=== PATIENT | male | born 1980 | race African-American/Black ===

== ENCOUNTER 2016-09-15 14:23 | Emergency (ER) | payer SELFPAY ==
[~2016-09-15] VITALS: Ht 177.8 cm; Wt 90.7 kg
[2016-09-15 15:06] VITALS: BP 118/75
--- NOTE | 2016-09-15 15:21 | Diagnostic Imaging Report ---
Indication: Pain Findings: 3 views of the right wrist were obtained. No acute fractures, malalignment, erosions or periostitis are identified. Bone mineralization is within normal limits. Soft tissues are unremarkable. Impression: Negative examination of the right wrist.
[2016-09-15] MEDS ORDERED: IBUPROFEN600 MG ORAL (15:28)
[2016-09-15] MEDS ORDERED: Ipratropium 0.02% Inh Soln 2.5ml UD HHN SCH (15:45)
[2016-09-15] MEDS ORDERED: Albuterol ud Inhalation HHN SCH (15:45)
[2016-09-15 15:54] VITALS: BP 118/75
--- NOTE | 2016-09-15 22:02 | Emergency Room Report ---
History of Present Illness General Chief Complaint: Pain Source: Patient Present Illness HPI The patient is a 36-year-old male presenting for right wrist pain which began today. The patient states that he fell onto his right hand and is now experiencing an 8/10 dull ache. Pain does not radiate. It is worse with wrist movement and touch. he denies previous injury to this area. He denies numbness or tingling. He denies any other symptoms Allergies: Coded Allergies: No Known Allergies (Unverified , 09/15/16) Patient History Past Medical History: see triage record Pertinent Family History: none Reviewed Nursing Documentation: PMH: Agreed, PSxH: Agreed Nursing Documentation-PMH Past Medical History: No Stated History Review of Systems All Other Systems: negative except mentioned in HPI Physical Exam Vital Signs Date Time Temp Pulse Resp B/P Pulse Ox O2 Delivery O2 Flow Rate FiO2 09/15/16 14:28 97.7 69 14 116/78 98 Room Air Sp02 EP Interpretation: reviewed, normal General Appearance: no apparent distress, alert, GCS 15, non-toxic Head: normocephalic, atraumatic Eyes: bilateral eye PERRL, bilateral eye normal inspection ENT: hearing grossly normal, normal pharynx, no angioedema, normal voice Musculoskeletal: normal inspection, normal range of motion, tender - TTP over the dorsal mid wrist Neurologic: alert, oriented x3, responsive, motor strength/tone normal, sensory intact, speech normal Psychiatric: judgement/insight normal, memory normal, mood/affect normal, no suicidal/homicidal ideation Skin: normal color, no rash, warm/dry, well hydrated Lymphatic: no adenopathy Medical Decision Making PA Attestation Dr. Rubio is my supervising physician. Patient management was discussed with my supervising physician Diagnostic Impression: Primary Impression: Contusion of wrist, right ER Course The patient is a 36-year-old male presenting for right wrist pain Ddx considered include but not limited to sprain/strain, fracture, contusion PE: vitals WNL. NAD R wrist: TTP over the dorsal joint line. Full AROM. No edema. No ecchymosis. The patient is given Motrin for pain. X-ray of the wrist is unremarkable To be discharged home with RICE instructions and a prescription for Motrin. ER precautions given Other X-Ray Diagnostic Results Other X-Ray Diagnostic Results : X-Ray Ordered: R wrist Date: September 15, 2016 EP Interpretation: Yes Findings: no fractures, no dislocation, no soft tissue swelling Number of Views: 3 PA Scribe Text I am acting as scribe for my supervising physician. My supervising physician's interpretation of the R wrist xrays are there are no fractures, dislocations or soft tissue swelling. Last Vital Signs Date Time Temp Pulse Resp B/P Pulse Ox O2 Delivery O2 Flow Rate FiO2 09/15/16 15:54 97.7 86 16 118/75 98 Room Air Disposition: HOME, SELF-CARE Condition: Improved Scripts Ibuprofen* (MOTRIN*) 600 Mg Tablet 600 MG ORAL Q8H Y for For Pain, #30 TAB 0 Refills Prov: MAU BLANC 09/15/16 Patient Instructions: Hand Contusion, [id number] Additional Instructions: I discussed my findings with the patient. All questions and concerns have been answered. Treatment and medication compliance have been addressed. I advised the patient that they need to follow up with PMD in 3-5 days. Return to ED if pain remains or worsens, numbness or tingling occurs, new rash is noticed, fever is noticed, or if needed for any reason. Patient verbalized understanding of discharge instructions. MAU BLANC September 15, 2016 22:02
== END 2016-09-15 16:01 | disposition home or self-care (01) ==
LOC: EMR 14:40
DX: S60.211A Contusion of right wrist, initial encounter (principal); W19.XXXA Unspecified fall, initial encounter; Y92.89 Other specified places as the place of occurrence of the external cause
CPT/HCPCS: 99283

== ENCOUNTER 2016-10-21 13:53 | Emergency (ER) | payer SELFPAY ==
[~2016-10-21] VITALS: Ht 175.3 cm; Wt 95.3 kg
[~2016-10-21 13:53] MED LIST: IBUPROFEN600 MG ORAL
[2016-10-21 14:11] VITALS: BP 143/86
--- NOTE | 2016-10-21 14:52 | Emergency Room Report ---
History of Present Illness General Chief Complaint: Pain Source: Patient Present Illness HPI 36 YO male presents emergency department complaining of 8/10 in severity pain in the right wrist that he describes as electrical, shooting sensation it radiates up into the right forearm, and is intermittent. Pain is exacerbated with movement of the wrist, denies tenderness. Patient states he sustained injury to the right wrist approximately one month ago and had x-rays which did not show fracture. Patient states his initial swelling and injuries improves with Motrin however he continues to have intermittent shooting electrical sensations of the right forearm. 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 Patient denies erythema, swelling or bruising. Patient denies new trauma. He reports intermittent numbness and tingling in the third and fourth digits. Denies numbness tingling or loss of sensation or gross motor movements of the extremities, incontinence of bowel or bladder. Denies CP, Palpitations, LOC, AMS, dizziness, Changes in Vision, Sensation, or a sudden severe headache. Allergies: Coded Allergies: No Known Allergies (Unverified , 09/15/16) Patient History Past Medical History: see triage record Past Surgical History: none Pertinent Family History: none Reviewed Nursing Documentation: PMH: Agreed, PSxH: Agreed Nursing Documentation-PMH Past Medical History: No Stated History Review of Systems All Other Systems: negative except mentioned in HPI Physical Exam Vital Signs Date Time Temp Pulse Resp B/P Pulse Ox O2 Delivery O2 Flow Rate FiO2 10/21/16 14:03 98.1 65 18 143/86 96 Sp02 EP Interpretation: reviewed, normal General Appearance: no apparent distress, alert, GCS 15, non-toxic Head: normocephalic, atraumatic Eyes: bilateral eye PERRL, bilateral eye normal inspection ENT: hearing grossly normal, normal pharynx, no angioedema, normal voice Neck: full range of motion, supple/symm/no masses Respiratory: lungs clear, normal breath sounds, speaking full sentences Cardiovascular #1: regular rate, rhythm, no edema, normal capillary refill Cardiovascular #2: 2+ radial (R), 2+ radial (L) Musculoskeletal: back normal, gait/station normal, normal range of motion, non- tender Neurologic: alert, oriented x3, responsive, motor strength/tone normal, sensory intact, speech normal Psychiatric: judgement/insight normal, memory normal, mood/affect normal Skin: normal color, no rash, warm/dry, well hydrated Lymphatic: no adenopathy Medical Decision Making PA Attestation Dr. Matt is my supervising Physician whom patient management has been discussed with. Diagnostic Impression: Primary Impression: PAIN IN RIGHT WRIST Additional Impression: Nerve pain ER Course 36 YO male presents emergency department complaining of 8/10 in severity pain in the right wrist that he describes as electrical, shooting sensation it radiates up into the right forearm. Patient states he sustained injury to the right wrist approximately one month ago and had x-rays which did not show fracture. Patient states his initial swelling and injuries improves with Motrin however he continues to have intermittent shooting electrical sensations of the right forearm. 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 Patient denies erythema, swelling or bruising. Patient denies new trauma. He reports intermittent numbness and tingling in the third and fourth digits. Ddx considered but are not limited to Nerve impingement, nerve pain , Fracture, dislocation, contusion, Sprain/Strain/Spasm. Vital signs: are WNL, pt. is afebrile H&PE are most consistent with nerve pain s/p trauma ORDERS: - X-ray not required at this time, initial evaluation was negative for fracture, or significant soft tissue injury. ED INTERVENTIONS: - Right wrist Splint applied by picking tech. Pt. remains neurovascularly intact. -d/w pt. the importance of primary care follow for referral to neurologist to assess continued pain and paresthesia intermittently in wrist after hx of trauma and conservative treatment. d/w pt. will try splinting and some gabapentin. in the mean time. DISCHARGE: At this time pt. is stable for d/c to home. Will provide printed patient care instructions, and any necessary prescriptions. Care plan and follow up instructions have been discussed with the patient prior to discharge. Last Vital Signs Date Time Temp Pulse Resp B/P Pulse Ox O2 Delivery O2 Flow Rate FiO2 10/21/16 14:11 98.1 69 18 143/86 96 Disposition: HOME, SELF-CARE Condition: Stable Scripts Gabapentin* (GABAPENTIN*) 100 Mg Capsule 100 MG ORAL THREE TIMES A DAY, #20 CAP Prov: Thelma Antonio P.A. 10/21/16 Patient Instructions: Wrist Pain Additional Instructions: Take medications as directed. Follow up with PCP in 3-5 days Return sooner to ED if new symptoms occur, or current symptoms become worse. - Please note that this Emergency Department Report was dictated using [employer] technology software, occasionally this can lead to erroneous entry secondary to interpretation by the dictation equipment. Thelma Antonio. Oct 21, 2016 14:52
[2016-10-21] MEDS ORDERED: GABAPENTIN100 MG ORAL (14:54)
[2016-10-21 15:21] VITALS: BP 139/83
== END 2016-10-21 15:25 | disposition home or self-care (01) ==
LOC: EMR 14:15
DX: M25.531 Pain in right wrist (principal); M79.2 Neuralgia and neuritis, unspecified
CPT/HCPCS: 29260; 99283